=== PATIENT | female | born 1940 | race Caucasian/White ===

== ENCOUNTER 2020-12-30 09:55 | Outpatient (CLI) | payer MEDICARE, SELFPAY ==
--- NOTE | ~2020-12-30 | MM_ITS ---
EXAMINATION: MM screening [facility] BI w anselmo HISTORY: Screening mammogram TECHNIQUE: Craniocaudal and mediolateral oblique 3-D tomosynthesis images were obtained and synthetic 2-D images were generated. CAD analysis was submitted and interpreted. COMPARISON: 08/16/2018, 03/17/2017, 11/03/2015 BREAST PARENCHYMAL COMPOSITION: There are scattered areas of fibroglandular density. FINDINGS: There is no evidence of suspicious mass, calcification, or architectural distortion to sugg est malignancy in either breast. There has been no suspicious interval change. IMPRESSION: 1. No mammographic evidence of malignancy. 2. Recommend routine screening mammography in one year. BI-RADS Category 1: Negative Reviewed, dictated and finalized at location A.
== END 2020-12-30 09:56 | disposition home or self-care (01) ==
PROVIDERS: PCP Family Medicine; Visit Provider Family Medicine
DX: Z12.31 Encounter for screening mammogram for malignant neoplasm of breast (principal)
CPT/HCPCS: 77063; 77067

== ENCOUNTER 2021-09-17 15:24 | Emergency (ER) | payer MEDICARE, BC, SELFPAY ==
--- NOTE | ~2021-09-17 | XR_ITS ---
EXAMINATION: XR chest 2V EXAM DATE: 09/17/2021 16:17 INDICATION: Left lateral chest pain non smoker. TECHNIQUE: Frontal and lateral projections of the chest obtained and reviewed. Comparison is made to prior examination from 08/29/2017. FINDINGS: Large gastroesophageal hiatal hernia. No confluent consolidation, pneumothorax or pleural e ffusion suspected. Cardiomediastinal silhouette is normal. There is aortic arteriosclerosis. There is aortic arteriosclerosis. There is no significant interval change. IMPRESSION: Large gastroesophageal hiatal hernia. No acute findings. Reviewed, dictated and finalized at location B. [employer]
[2021-09-17 15:37] VITALS: BP 142/83; PULSE 98; RESP 16; TEMP 37.3; O2SAT 99
--- NOTE | 2021-09-17 15:53 | ED.GENADULT ---
HPI - General Adult General Chief complaint: Unspecified Stated complaint: left side pain Time Seen by Provider: 09/17/21 15:50 Source: patient, RN notes reviewed and old records reviewed Mode of arrival: ambulatory Limitations: no limitations History of Present Illness HPI narrative: 81 year old female who presents to [facility] care with complaints of opening a lot of hard to open windows yesterday at home and at about 2230 last pm she developed pain to the left upper lateral area under rib cage with no increase pain with deep breathing. Patient states that she had some dry heaves around 3 am with nausea but never had emesis. Patient denies any shortness of breath or any vomiting today. Patient report that she has been drinking water and ate toast today and has taken some Tylenol for her discomfort. MD complaint: left Onset (ago): day(s) (1) Related Data Home Medications Medication Instructions Recorded Confirmed aspirin 81 mg tablet,delayed 81 mg PO DAILY 08/09/19 09/17/21 release atorvastatin 40 mg tablet 40 mg PO DAILY 08/09/19 09/17/21 clopidogrel 75 mg tablet 75 mg PO DAILY 08/09/19 09/17/21 omeprazole magnesium 2.5 mg oral 10 mg PO DAILY 08/09/19 09/17/21 suspension,delayed release cholecalciferol (vitamin D3) 125 125 mcg PO DAILY 07/24/20 09/17/21 mcg (5,000 unit) capsule Allergies Allergy/AdvReac Type Severity Reaction Status Date / Time lansoprazole Allergy Unknown Unknown Verified 09/17/21 15:45 Sulfa (Sulfonamide Allergy Unknown Facial Verified 09/17/21 15:45 Antibiotics) swelling Review of Systems Review of Systems: CONSTITUTIONAL: Denies fever, chills, or sweats. EYES: Denies visual changes, redness, or discharge. ENT: Denies rhinorrhea, congestion, sore throat, or otalgia. CARDIOVASCULAR: Denies chest pain, palpitations, or edema. RESPIRATORY: Denies cough or dyspnea.pain below left lower lateral rib cage to axillary line, no increase with deep breathing GASTROINTESTINAL: Denies any acute abdominal pain,positive for episode of nausea last night with dy heaves, no vomiting, or diarrhea. GENITOURINARY: Denies dysuria or hematuria. SKIN: Denies rash or itching. MUSCULOSKELETAL: Denies back pain, joint pain, or myalgia. NEUROLOGIC: Denies headache, numbness, or weakness. PSYCHIATRIC: Positive history of anxiety or depression. All systems reviewed & are unremarkable except as noted in HPI and below PMFSH Past Medical History Medical History (Updated 09/17/21 @ 16:40 by Joellen Patel NP) DVT (deep venous thrombosis) Gastro-esophageal reflux disease without esophagitis Malignant melanoma of skin, unspecified Surgical History Surgical History (Updated 09/17/21 @ 16:27 by Joellen Patel NP) History of hysterectomy History of thoracotomy melanoma of right lung History of tubal ligation Family History Family History Mother Cerebrovascular accident Family history of heart disease in male family member before age 55 Patient's mother is Family history of coronary artery disease Father Hypertension Family history of elevated blood lipids Family history of cardiovascular disease, Onset Age: 73 Cerebrovascular accident Social History Social History (Updated 09/17/21 @ 16:24 by Joellen Patel NP) Smoking status: Never smoker Alcohol intake: never Substance use: never Living arrangements: with family Gender identity (if verbalized by the patient): Female Comments At time of signature, agree with nursing past medical, surgical, social and family history. There is no relevant family history pertinent to the presenting complaint Exam Narrative: GENERAL: Well-appearing, well-nourished, obese and in no acute distress. HEAD: Normocephalic, atraumatic. EYES: PERRLA and EOMI. ENT: Nares clear, no rhinorrhea or epistaxis. Mucous membranes moist.TM's normal with good light reflex, throat pink
== END 2021-09-17 16:45 | disposition home or self-care (01) ==
PROVIDERS: Emergency Provider Registered Nurse; PCP Family Medicine
DX: S29.011A Strain of muscle and tendon of front wall of thorax, initial encounter (principal); X50.3XXA Overexertion from repetitive movements, initial encounter; K44.9 Diaphragmatic hernia without obstruction or gangrene; R10.812 Left upper quadrant abdominal tenderness; Z86.718 Personal history of other venous thrombosis and embolism; K21.9 Gastro-esophageal reflux disease without esophagitis; Z85.820 Personal history of malignant melanoma of skin; Z85.118 Personal history of other malignant neoplasm of bronchus and lung; Z79.82 Long term (current) use of aspirin
CPT/HCPCS: 71046; 99213; G0463

== ENCOUNTER 2021-10-13 12:50 | Outpatient (CLI) | payer MEDICARE, BC, SELFPAY ==
--- NOTE | ~2021-10-13 | DEXA_ITS ---
Bone Density Report Name: EFRA BARRETT Age: 81 Sex: Female Ethnicity: White Date of : 1940 Indication: osteopenia; height loss; prior fracture; cancer; asthma or emphysema; hysterectomy; postmenopausal Referring Provider: Tabby Davidson Study: Bone densitometry was performed. Exam Date: October 13, 2021 Accession number: [id number] Bone Density: Region BMD T-score Z-score Classification AP Spine (L1-L4) 0.794 -2.3 0.4 Osteopenia Femoral Neck (Left) 0.490 -3.2 -0.9 Osteoporosis Total Hip (Left) 0.552 -3.2 -1.2 Osteoporosis Total Hip Bilateral Avg 0.578 -3.0 -0.9 Osteoporosis Femoral Neck (Right) 0.588 -2.4 -0.1 Osteopenia Total Hip (Right) 0.603 -2.8 -0.7 Osteoporosis World Health Organization criteria for BMD impression classify patients as: Normal (T-score at or above -1.0), Osteopenia (T-score between -1.0 and -2.5), or Osteoporosis (T-score at or below -2.5). 10-year Fracture Risk: FRAX not reported because: Some T-score for Spine Total or Hip Total or Femoral Neck at or below -2.5 Previous Exams: Region Exam Age BMD T-score BMD Change BMD Change Date g/cm2 vs Baseline vs Previous AP Spine(L1-L4) 10/13/2021 81 0.794 -2.3 0.004(0.5%)# -0.036(-4.3%)* 01/10/2012 71 0.830 -2.0 0.040(5.1%)# 0.025(3.1%)# 02/16/2008 67 0.805 -2.2 0.015(1.9%) 0.015(1.9%) 10/31/2004 64 0.790 -2.3 Total Hip(Left) 10/13/2021 81 0.552 -3.2 -0.169(-23.4%) -0.125(-18.5%) 01/10/2012 71 0.678 -2.2 -0.044(-6.1%)# -0.057(-7.7%)# 02/16/2008 67 0.734 -1.7 0.013(1.8%) 0.013(1.8%) 10/31/2004 64 0.722 -1.8 Total Hip(Right) 10/13/2021 81 0.603 -2.8 -0.114(-15.9%) -0.150(-19.9%) 01/10/2012 71 0.753 -1.5 0.035(4.9%)# 0.035(4.9%)# 02/16/2008 67 0.718 -1.8 0.000(0.0%) 0.000(0.0%) 10/31/2004 64 0.718 -1.8 *Denotes significance at 95% confidence level, LSC for AP Spine = 0.022 g/cm2, LSC for Total Hip = 0.027 g/cm2 Clinical Information Provided by Patient: Has had a low trauma fracture Has used the following medications: Vitamin D, Calcium Has the following medical conditions: Asthma or Emphysema, Cancer, Hysterectomy Patient maximum height was 66 No regular weight bearing exercise Drinks caffeinated beverages Onset of menses at age 14 Number of children 4 Impression: The patient has established osteoporosis, based on the Left Total Hip T-score and the existence of a prior fracture. T
== END 2021-10-13 12:51 | disposition home or self-care (01) ==
LOC: ANHIMG 12:52
PROVIDERS: PCP Family Medicine; Visit Provider Physician Assistant
DX: Z78.0 Asymptomatic menopausal state (principal); M85.88 Other specified disorders of bone density and structure, other site; M81.0 Age-related osteoporosis without current pathological fracture; M85.851 Other specified disorders of bone density and structure, right thigh
CPT/HCPCS: 77080